=== PATIENT | female | born 1995 | race Caucasian/White ===

== ENCOUNTER 2021-02-26 10:30 | Inpatient (IN) | payer BC ==
[~2021-02-26] VITALS: Ht 175.3 cm; Wt 86.4 kg
[2021-02-26] VITALS (37 sets, daily range): BP systolic 96–152; BP diastolic 55–89; PULSE 71–162; TEMP 98.2–98.5
--- NOTE | 2021-02-26 10:20 | NUR ---
Admits to L&D from home, for labor check, with c/o marquis every 3-5 minutes since 0. Note, patient ambulatory, accompanied by spouse, visibly uncomfortable with pain of contractions.
[2021-02-26 11:23] LABS: BASO % 0.3 % (0.0-2.0); EOS % 0.4 % (0-4.0); GRAN # 9.4 (1.4-6.5); GRAN % 83.3 % (42.2-75.2); HEMOGLOBIN 12.7 g/dl (12.5-16.0); LYMPH # 1.1 (1.2-3.4); LYMPH % 9.3 % (20.0-51.0); MEAN CELL VOLUME 92 fl (80.0-100.0); MEAN CORPUSCULAR HEMOGLOBIN 32 pg (27.0-31.0); MEAN CORPUSCULAR HGB CONC 35 g/dl (33.0-37.0); MEAN PLATELET VOLUME 12.1 fl (7.4-10.4); MONO # 0.7 (0.1-0.6); PLATELET COUNT 165 K/mm3 (130-400); RED BLOOD COUNT 3.97 M/mm3 (4.10-5.30); REDCELL DISTRIBUTION WIDTH-CV 13.2 % (11.5-14.5)
[2021-02-26 11:25] LABS: HEMATOCRIT 36.7 % (37.0-47.0)
[2021-02-26] MEDS ORDERED: PRENATAL TABLET PO (11:40)
--- NOTE | 2021-02-26 11:40 | NUR ---
Allowed off of continuous EFM to move about room freely, as noted Category I strip, and patient request for low intervention labor at this time.
--- NOTE | 2021-02-26 11:41 | NUR ---
Placed on EFM for intermittent monitoring per protocol with low intervention labor.
--- NOTE | 2021-02-26 12:06 | NUR ---
Allowed off of continous EFM @ this time after noting Category I strip, to allow patient to move about room freely.
--- NOTE | 2021-02-26 12:43 | NUR ---
Placed back on EFM per intermittent monitoring protocol.
--- NOTE | 2021-02-26 12:55 | NUR ---
Requests epidural. LR bolus begun. MARC Guevara, notified of patient request.
--- NOTE | 2021-02-26 13:12 | NUR ---
Off of [facility] for bathroom break while awaiting [employer]LECT[employer]IC[employer]PER[employer] arrival for epidural placement.
--- NOTE | 2021-02-26 13:14 | NUR ---
1314: MARC Guevara, here for epidural placement per patient request. 1322: Epidural space obtained by SUPPORTIVE EMPLOYMENT CASE MANAGER. 1323: Single shot administered by SUPPORTIVE EMPLOYMENT CASE MANAGER. 1324: Test dose administered by SUPPORTIVE EMPLOYMENT CASE MANAGER. No adverse effects noted. Tolerates procedure well. Positioned to low moody's wedged left following epidural placement.
--- NOTE | 2021-02-26 13:29 | NUR ---
1329: here for AROM/SVE with explanation to patient. 1332: AROM by . Copious amount of mature clear fluid noted. SVE per /.
--- NOTE | 2021-02-26 14:15 | NUR ---
Repositioned to left lateral with large red peanut ball over left leg, under right leg.
--- NOTE | 2021-02-26 15:16 | NUR ---
1510: Repositioned from left lateral to right lateral with peanut ball. Note FHR drops with repositioning. 1512: Repeat SVE performed 8/100/+1, suspect variable deceleration is due to rapid cervical change. Increased amount of bloody show noted. This contract writer calls Randy RN, for assistance. 1513: Repositioned to left lateral following repeat SVE. O2 per simple face mask placed @ 10L/min. 1514: Prolonged variable deceleration noted, approximately 4 minutes in duration, down to 68 bpm @ lowest point. 1515: Roles notified of prolonged deceleration, and above interventions to correct.
--- NOTE | 2021-02-26 15:50 | NUR ---
Allowed to remove O2 @ this time, as noted FHT appear to have fully recovered. This explained to patient and spouse.
--- NOTE | 2021-02-26 16:30 | NUR ---
First push attempt with instruction.
--- NOTE | 2021-02-26 16:30 | NUR ---
Liriano catheter removed @ this time with pushing efforts.
--- NOTE | 2021-02-26 16:45 | NUR ---
Using handle bars through push attempts.
--- NOTE | 2021-02-26 17:05 | NUR ---
Squat bar applied to bed for tug of war pushing methods with instruction. Note patient much more effective with this pushing method.
--- NOTE | 2021-02-26 17:35 | NUR ---
here for evaluation after being notified of recurrent late decels following push attempts, notified @ [id number]. Pulse ox placed on patient for verification of differentiation between tracing FHT and MHR.
--- NOTE | 2021-02-26 17:45 | NUR ---
Note patient continues with tug of war method of pushing. remains in-house, monitoring FHR through central monitoring, with frequent visits to room to check on progress of maternal pushing efforts.
--- NOTE | 2021-02-26 18:10 | NUR ---
discusses with patient heart rate pattern, concerns for stress on fetus, possibility of needing to place vacuum for assistance with combination of maternal exhaustion, and non-reassuring rate. Patient and spouse verbalize understanding. Bed broken down for delivery. Nursery nurse, charge nurse notified for delivery.
--- NOTE | 2021-02-26 18:15 | NUR ---
1814: Vacuum applied by to head, no pressure applied at this time. 1816: Vacuum pressure applied by . Vac assist through this contraction. 1816: Vacuum assisted delivery of head by . 1817: Spontaneous vaginal delivery of male infant by @ this time. placed on maternal abdomen. Nursery staff at bedside for assessment of . discusses a one time dose of IV Cefoxitin with patient, as noted needing extensive repair of 3rd degree perineal laceration. Patient verbalizes understanding. Epidural remains running throughout repair of third degree by . Cord gases obtained by . Sent to RT for analysis. Terminal meconium noted.
--- NOTE | 2021-02-26 22:00 | NUR ---
PT UP TO BATHROOM, UNABLE TO VOID AT THIS TIME. PERICARE PROVIDED, ASSISTED PT BACK TO BED FOR STRAIGHT CATH.
--- NOTE | 2021-02-26 22:50 | NUR ---
2230 PT STRAIGHT CATH FOR 600ML, BRUCE CARE DONE, ICE PACK, PAD, PANTIES AND CLEAN GOWN ON. PT AMBULATED TO RM [id number] WITH STAND BY ASSIST. ORIENT TO ROOM.
[2021-02-27 02:07] VITALS: BP 137/83; PULSE 83; TEMP 98
[2021-02-27 06:16] VITALS: BP 139/86; PULSE 81; TEMP 98.4
[2021-02-27 06:22] LABS: HEMOGLOBIN 10.8 g/dl (12.5-16.0)
[2021-02-27 10:00] VITALS: BP 134/91; PULSE 87; TEMP 98.2
[2021-02-27] MEDS ORDERED: PERCOCET 325 MG1 TA2 PO (10:38)
[2021-02-27] MEDS ORDERED: IBU600 MG PO (10:38)
[2021-02-27 15:44] VITALS: BP 135/81; PULSE 90; TEMP 99.1
[2021-02-27 19:15] VITALS: BP 116/90; PULSE 79; TEMP 98.5
--- NOTE | 2021-02-28 07:00 | NUR ---
Rests in bed, alert. baby. Denies any needs at this time.
--- NOTE | 2021-02-28 07:30 | NUR ---
Rests in bed, alert. Denies any needs at this time.
[2021-02-28 09:30] VITALS: BP 121/79; PULSE 81; TEMP 98.3
--- NOTE | 2021-02-28 10:30 | NUR ---
Rests in bed, alert. Denies any needs at this time.
== END 2021-02-28 13:30 | disposition home or self-care (01) | DRG 768 ==
LOC: LDRO 10:30 → OB 10:42 → LDR 10:42 → LDRO 11:12 → OB 22:30
PROVIDERS: Obstetrics & Gynecology; ADMIT Obstetrics & Gynecology
PROC: 10D07Z6 Extraction of Products of Conception, Vacuum, Via Natural or Artificial Opening (ICD-10-PCS; principal; 2021-02-26)
PROC: 0DQR0ZZ Repair Anal Sphincter, Open Approach (ICD-10-PCS; 2021-02-26)
PROC: 10907ZC Drainage of Amniotic Fluid, Therapeutic from Products of Conception, Via Natural or Artificial Opening (ICD-10-PCS; 2021-02-26)
PROC: 3E033VJ Introduction of Other Hormone into Peripheral Vein, Percutaneous Approach (ICD-10-PCS; 2021-02-26)
DX: O76 Abnormality in fetal heart rate and rhythm complicating labor and delivery (principal); Z37.0 Single live birth; O70.20 Third degree perineal laceration during delivery, unspecified; Z3A.39 39 weeks gestation of pregnancy
CPT/HCPCS: J0694; J2590; J7120